=== PATIENT | female | born 1985 | race Caucasian/White ===

== ENCOUNTER 2016-08-13 12:02 | Emergency (ER) | payer MEDICAID ==
[2016-08-13 12:47] LABS: CHLORIDE,CL 105 mEq/L (98-106); SODIUM,NA 140 mEq/L (136-145)
[2016-08-13 12:52] VITALS: BP 128/72
--- NOTE | 2016-08-13 13:11 | EDM.PDOC ---
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 Never got out of truck and nobody reported her doing anything unusual. Currently feels dizzy and nauseated. She has had a posterior headache for several days before this but denies any trauma or head injury. No change in vision noted. Doesn't know if she has been having a fever or not. No past medical history to contribute to it. Onset: Today Location: Reports: Head Quality: Reports: Ache Associated Symptoms: Reports: Nausea/Vomiting. 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 Headache Pain Score (Numeric/FACES): 7 - Related Data Allergies Allergy/AdvReac Type Severity Reaction Status Date / Time Penicillins Allergy Hives Verified 08/13/16 12:15 BEE STINGS Allergy Other Uncoded 08/13/16 12:15 Home Meds: Home Meds Cyclobenzaprine [Flexeril] 10 mg PO TID PRN 08/13/16 [History] Past Medical History - Past Surgical History Female Surgical History: Reports: Tubal Ligation Social & Family History - Tobacco Use Smoking Status *Q: Current Every Day Smoker Years of Tobacco use: 13 Packs/Tins Daily: 1 ED ROS GENERAL - Review of Systems Review Of Systems: See Below Constitutional: Denies: Weakness HEENT: Reports: No Symptoms Respiratory: Reports: No Symptoms Cardiovascular: Reports: No Symptoms GI/Abdominal: Denies: Abdominal Pain : Denies: Dysuria, Flank Pain, Frequency, Hematuria, Pain, Urgency Musculoskeletal: Reports: No Symptoms Skin: Denies: Bruising, Rash, Wound Neurological: Reports: Confusion, Other (see HPI) ED EXAM, GENERAL - Physical Exam Exam: See Below Exam Limited By: No Limitations General Appearance: Alert, WD/WN, No Apparent Distress Ears: Normal External Exam, Normal Canal, Hearing Grossly Normal, Normal TMs Nose: Normal Inspection, Normal Mucosa Throat/Mouth: Normal Inspection, Normal Voice, Other (posterior pharynx is bright red with white patches noted bilaterally.) Head: Atraumatic, Normocephalic Neck: Normal Inspection, Supple, Non-Tender, Full Range of Motion Respiratory/Chest: No Respiratory Distress, Lungs Clear, Normal Breath Sounds, Chest Non-Tender Cardiovascular: Normal Peripheral Pulses, Regular Rate, Rhythm, No Edema GI/Abdominal: Normal Bowel Sounds, Soft, Non-Tender Extremities: Normal Inspection, Normal Range of Motion, Non-Tender, No Pedal Edema, Normal Capillary Refill Neurological: Alert, Oriented, CN II-XII Intact, Normal Cognition, Normal Gait, No Motor/Sensory Deficits Psychiatric: Normal Affect, Normal Mood Skin Exam: Warm, Dry, Intact, Normal Color Course - Vital Signs Last Recorded V/S: Last Vital Signs Temp 97.3 F 08/13/16 12:50 Pulse 56 L 08/13/16 12:50 Resp 16 08/13/16 12:50 BP 128/72 08/13/16 12:50 Pulse Ox 99 08/13/16 12:50 - Orders/Labs/Meds Orders: Active Orders 24 hr Category Date Time Status Head wo Cont [CT] Stat Exams 08/13/16 12:26 Taken CULTURE URINE [RM] Stat Lab 08/13/16 13:05 Uncollected STREP SCRN A RAPID W CULT CONF [RM] Stat Lab 08/13/16 13:00 Received Labs: Laboratory Tests 08/13/16 08/13/16 08/13/16 Range/Units 12:24 12:24 12:25 WBC 8.3 (5.0-10.0) 10^3/uL RBC 4.20 (4.00-5.50) 10^6/uL Hgb 13.2 (12.0-16.0) g/dL Hct 40.3 (37.0-47.0) % MCV 96.0 H (82.0-94.0) fL MCH 31.4 (27.0-32.0) pg MCHC 32.8 L (33.0-38.0) g/dL RDW Coeff of Bianca 12.1 (11.0-15.0) % Plt Count 232 (150-400) 10^3/uL Neut % (Auto) 70.9 (35-85) % Lymph % (Auto) 19.5 (10-55) % [place] % (Auto) 8.1 (0-16) % Eos % (Auto) 1.1 (0-5) % Baso % (Auto) 0.4 (0-3) % Neut # (Auto) 5.85 (1.80-7.00) 10^3/uL Lymph # (Auto) 1.61 (1.00-4.80) 10^3/uL [place] # (Auto) 0.67 (0.00-0.80) 10^3/uL Eos # (Auto) 0.09 (0.00-0.45) 10^3/uL Baso # (Auto) 0.03 10^3/uL Sodium 140 (136-145) mEq/L Potassium 4.0 (3.5-5.0) mEq/L Chloride 105 (98-106) mEq/L Carbon Dioxide 30 (21-32) mmol/L BUN 10 (7-18) mg/dL Creatinine 0.8 (0.6-1.0) mg/dL Est Cr Clr Drug Dosing 92.53 mL/min Estimated GFR (MDRD) > 60 (>=60) mL/min Glucose 90 (75-99) mg/dL Calcium 8.6 (8.4-10.1) mg/dL Total Bilirubin 0.6 (0.0-1.0) mg/dL AST 10 L (15-37) U/L ALT 16 (12-78) U/L Alkaline Phosphatase 54 (46-116) U/L Total Protein 6.3 L (6.4-8.2) g/dL Albumin 3.4 (3.4-5.0) g/dL Urine Color Yellow (YELLOW) Urine Appearance Cloudy (CLEAR) Urine pH 7.0 (4.5-8.0) Ur Specific [place] 1.016 (1.003-1.020) Urine Protein Negative (NEGATIVE) mg/dL Urine Glucose (UA) Negative (NEGATIVE) mg/dL Urine Ketones Negative (NEGATIVE) mg/dL Urine Occult Blood Negative (NEGATIVE) Urine Nitrite Positive H (NEGATIVE) Urine Bilirubin Negative (NEGATIVE) Urine Urobilinogen 0.2 (0.2-1.0) EU/dL Ur Leukocyte Esterase Trace H (NEGATIVE) Urine RBC Not seen (0-5) /HPF Urine WBC 0-5 (0-5) /HPF Ur Epithelial Cells Few H (NOT SEEN) /HPF Amorphous Sediment Few H (NOT SEEN) /HPF Urine Bacteria Many H (NOT SEEN) /HPF Departure - Departure Time of Disposition: 13:18 Disposition: Home, Self-Care 01 Condition: Good Clinical Impression: UTI, Urinary tract infectious disease - Discharge Information Forms: ED Department Discharge Additional Instructions: Push fluids as much as possible Tylenol or advil for headache or pain Cipro 500 mg twice a day for 10 days No work today and tomorrow If symptoms persist or do not completely resolve then recheck. - Problem List & Annotations (1) UTI, Urinary tract infectious disease SNOMED Code(s): 87883279 Code(s): N39.0 - URINARY TRACT INFECTION, SITE NOT SPECIFIED Status: Acute Priority: High - Problem List Review Problem List Initiated/Reviewed/Updated: Yes - My Orders Last 24 Hours: My Active Orders 08/13/16 12:26 Head wo Cont [CT] Stat 08/13/16 13:00 STREP SCRN A RAPID W CULT CONF [RM] Stat 08/13/16 13:05 CULTURE URINE [RM] Stat - Assessment/Plan Last 24 Hours: My Active Orders 08/13/16 12:26 Head wo Cont [CT] Stat 08/13/16 13:00 STREP SCRN A RAPID W CULT CONF [RM] Stat 08/13/16 13:05 CULTURE URINE [RM] Stat
== END 2016-08-13 13:30 | disposition home or self-care (01) ==
LOC: CC.ED 12:02
DX: N39.0 Urinary tract infection, site not specified (principal); F17.210 Nicotine dependence, cigarettes, uncomplicated; Z88.0 Allergy status to penicillin; Z91.030 Bee allergy status; Z98.51 Tubal ligation status
CPT/HCPCS: 36415; 70450; 80053; 81001; 85025; 87086; 87088; 87186; 87430; 99284

== ENCOUNTER 2017-07-20 19:40 | Emergency (ER) | payer MEDICAID, OTHER ==
[2017-07-20 20:02] VITALS: BP 133/80
[2017-07-20 20:11] LABS: CHLORIDE,CL 107 mEq/L (98-106); SODIUM,NA 143 mEq/L (136-145)
[2017-07-20] MEDS ORDERED: Ketorolac 60 MG/2 ML SDV IM ONE (20:26)
[2017-07-20] MEDS ORDERED: cefTRIAXone 1 GM Vial IM ONE (20:26)
--- NOTE | 2017-07-20 20:32 | EDM.PDOC ---
ED HPI GENERAL MEDICAL PROBLEM - General Chief Complaint: Abdominal Pain Stated Complaint: "Having lower abdominal pain" Time Seen by Provider: 07/20/17 19:55 Source of Information: Reports: Patient History Limitations: Reports: No Limitations - History of Present Illness INITIAL COMMENTS - FREE TEXT/NARRATIVE: Criselda is a 31 yo female who presents ambulatory to the ER with complaints of right lower quadrant/pelvic pain. She states she started her period on Wednesday. Admits it was her boyfriend's birthday on Wednesday and she had intercourse. She states they had both been drinking and is concerned that a tampon is still in her vagina. She states her bleeding had stopped on Wednesday and into Wednesday. Admits this is really odd for her. She states she started getting the abdominal pain yesterday and has progressively worsened since. She states she started having light bleeding today. She denies any chance of . States she had her tubes tied. Admits to history of ovarian cysts though. Location: Reports: Pelvis Quality: Reports: Pressure, Sharp - Related Data Allergies Allergy/AdvReac Type Severity Reaction Status Date / Time amoxicillin Allergy Rash Verified 07/20/17 20:28 Penicillins Allergy Hives Verified 07/20/17 19:46 BEE STINGS Allergy Other Uncoded 07/20/17 19:46 Home Meds: Home Meds Cyclobenzaprine [Flexeril] 10 mg PO TID PRN 08/13/16 [History] Past Medical History MEDICAL ENGINEER History: Reports: Polycystic Ovaries, : 3 Para: 3 LMP (Approximate): Menstruating - Past Surgical History Female Surgical History: Reports: Tubal Ligation Social & Family History - Tobacco Use Smoking Status *Q: Current Every Day Smoker Years of Tobacco use: 10 Packs/Tins Daily: 1 ED ROS GENERAL - Review of Systems Review Of Systems: ROS reveals no pertinent complaints other than HPI. Constitutional: Denies: Fever, Chills Respiratory: Reports: No Symptoms Cardiovascular: Reports: No Symptoms Endocrine: Reports: No Symptoms GI/Abdominal: Reports: Abdominal Pain, Nausea. Denies: Constipation, Diarrhea, Vomiting : Reports: Flank Pain, Hematuria. Denies: Dysuria, Incontinence, Irregular Menses Skin: Reports: No Symptoms Psychiatric: Reports: No Symptoms ED EXAM, GI/ABD - Physical Exam Exam: See Below General Appearance: Alert, No Apparent Distress Course - Vital Signs Last Recorded V/S: Last Vital Signs Temp 97.5 F 07/20/17 19:58 Pulse 80 07/20/17 19:58 Resp 20 07/20/17 19:58 BP 133/80 07/20/17 19:58 Pulse Ox 95 07/20/17 19:58 - Orders/Labs/Meds Orders: Active Orders 24 hr Category Date Time Status Ketorolac [Toradol] Med 07/20/17 20:26 Once 60 mg IM ONETIME ONE cefTRIAXone [Rocephin] Med 07/20/17 20:26 Once 1 gm IM ONETIME ONE Medication Orders Ceftriaxone Sodium (Rocephin) 1 gm IM ONETIME ONE Stop: 07/20/17 20:27 Ketorolac Tromethamine (Toradol) 60 mg IM ONETIME ONE Stop: 07/20/17 20:27 Labs: Laboratory Tests 07/20/17 07/20/17 07/20/17 Range/Units 19:57 19:57 19:57 WBC 5.7 (5.0-10.0) 10^3/uL RBC 4.20 (4.00-5.50) 10^6/uL Hgb 13.3 (12.0-16.0) g/dL Hct 39.6 (37.0-47.0) % MCV 94.3 H (82.0-94.0) fL MCH 31.7 (27.0-32.0) pg MCHC 33.6 (33.0-38.0) g/dL RDW Coeff of Bianca 12.4 (11.0-15.0) % Plt Count 277 (150-400) 10^3/uL Neut % (Auto) 37.7 (35-85) % Lymph % (Auto) 49.6 (10-55) % [place] % (Auto) 7.6 (0-16) % Eos % (Auto) 4.4 (0-5) % Baso % (Auto) 0.7 (0-3) % Neut # (Auto) 2.13 (1.80-7.00) 10^3/uL Lymph # (Auto) 2.81 (1.00-4.80) 10^3/uL [place] # (Auto) 0.43 (0.00-0.80) 10^3/uL Eos # (Auto) 0.25 (0.00-0.45) 10^3/uL Baso # (Auto) 0.04 10^3/uL Sodium 143 (136-145) mEq/L Potassium 3.7 (3.5-5.0) mEq/L Chloride 107 H (98-106) mEq/L Carbon Dioxide 23 (21-32) mmol/L BUN 11 (7-18) mg/dL Creatinine 0.9 (0.6-1.0) mg/dL Est Cr Clr Drug Dosing TNP Estimated GFR (MDRD) > 60 (>=60) mL/min Glucose 105 H (75-99) mg/dL Calcium 8.1 L (8.4-10.1) mg/dL Total Bilirubin 1.3 H (0.0-1.0) mg/dL AST 20 (15-37) U/L ALT 26 (12-78) U/L Alkaline Phosphatase 69 (46-116) U/L C-Reactive Protein < 0.2 L (0.2-0.8) mg/dL Total Protein 6.9 (6.4-8.2) g/dL Albumin 3.9 (3.4-5.0) g/dL HCG, Qual Urine Color Yellow (YELLOW) Urine Appearance Slightly cloudy (CLEAR) Urine pH 6.0 (4.5-8.0) Ur Specific [place] 1.015 (1.003-1.020) Urine Protein Negative (NEGATIVE) mg/dL Urine Glucose (UA) Negative (NEGATIVE) mg/dL Urine Ketones Negative (NEGATIVE) mg/dL Urine Occult Blood Moderate H (NEGATIVE) Urine Nitrite Positive H (NEGATIVE) Urine Bilirubin Negative (NEGATIVE) Urine Urobilinogen 1.0 (0.2-1.0) EU/dL Ur Leukocyte Esterase Trace H (NEGATIVE) Urine RBC 5-10 H (0-5) /HPF Urine WBC 5-10 H (0-5) /HPF Ur Epithelial Cells Few H (NOT SEEN) /HPF Urine Bacteria Many H (NOT SEEN) /HPF Urine Mucus Few H (NOT SEEN) /HPF 07/20/17 Range/Units 19:57 WBC (5.0-10.0) 10^3/uL RBC (4.00-5.50) 10^6/uL Hgb (12.0-16.0) g/dL Hct (37.0-47.0) % MCV (82.0-94.0) fL MCH (27.0-32.0) pg MCHC (33.0-38.0) g/dL RDW Coeff of Bianca (11.0-15.0) % Plt Count (150-400) 10^3/uL Neut % (Auto) (35-85) % Lymph % (Auto) (10-55) % [place] % (Auto) (0-16) % Eos % (Auto) (0-5) % Baso % (Auto) (0-3) % Neut # (Auto) (1.80-7.00) 10^3/uL Lymph # (Auto) (1.00-4.80) 10^3/uL [place] # (Auto) (0.00-0.80) 10^3/uL Eos # (Auto) (0.00-0.45) 10^3/uL Baso # (Auto) 10^3/uL Sodium (136-145) mEq/L Potassium (3.5-5.0) mEq/L Chloride (98-106) mEq/L Carbon Dioxide (21-32) mmol/L BUN (7-18) mg/dL Creatinine (0.6-1.0) mg/dL Est Cr Clr Drug Dosing Estimated GFR (MDRD) (>=60) mL/min Glucose (75-99) mg/dL Calcium (8.4-10.1) mg/dL Total Bilirubin (0.0-1.0) mg/dL AST (15-37) U/L ALT (12-78) U/L Alkaline Phosphatase (46-116) U/L C-Reactive Protein (0.2-0.8) mg/dL Total Protein (6.4-8.2) g/dL Albumin (3.4-5.0) g/dL HCG, Qual Negative Urine Color (YELLOW) Urine Appearance (CLEAR) Urine pH (4.5-8.0) Ur Specific [place] (1.003-1.020) Urine Protein (NEGATIVE) mg/dL Urine Glucose (UA) (NEGATIVE) mg/dL Urine Ketones (NEGATIVE) mg/dL Urine Occult Blood (NEGATIVE) Urine Nitrite (NEGATIVE) Urine Bilirubin (NEGATIVE) Urine Urobilinogen (0.2-1.0) EU/dL Ur Leukocyte Esterase (NEGATIVE) Urine RBC (0-5) /HPF Urine WBC (0-5) /HPF Ur Epithelial Cells (NOT SEEN) /HPF Urine Bacteria (NOT SEEN) /HPF Urine Mucus (NOT SEEN) /HPF Meds: Medications Generic Name Dose Route Start Last Admin Trade Name Freq PRN Reason Stop Dose Admin Ceftriaxone Sodium 1 gm 07/20/17 20:26 Rocephin IM 07/20/17 20:27 ONETIME ONE Ketorolac Tromethamine 60 mg 07/20/17 20:26 Toradol IM 07/20/17 20:27 ONETIME ONE - Re-Assessments/Exams Free Text/Narrative Re-Assessment/Exam: Speculum exam performed with full intact tampon found in the right upper area of the vaginal vault. String and tampon completely intact and removed using long forceps. No further residual tampon products noted. Genital culture done. Departure - Departure Time of Disposition: 20:36 Disposition: Home, Self-Care Clinical Impression: PID (acute pelvic inflammatory disease) UTI (urinary tract infection) Qualifiers: Urinary tract infection type: site unspecified Hematuria presence: with hematuria Qualified Code(s): N39.0 - Urinary tract infection, site not specified ; R31.9 - Hematuria, unspecified - Discharge Information Instructions: Pelvic Inflammatory Disease, [id number], Urinary Tract Infection, Adult Additional Instructions: 1) Doxycycline 100mg twice a day for 10 days 2) Push fluids 3) Pelvic rest until infection is cleared 4) 1000mg of Tylenol with 400mg of Ibuprofen every 6-8 hours as needed for discomfort. 5) Follow up with primary after finishing antibiotic for confirmed clearance of infection 6) Return to ER if any concerns. - Problem List & Annotations (1) PID (acute pelvic inflammatory disease) SNOMED Code(s): 361194718 Code(s): N73.0 - ACUTE PARAMETRITIS AND PELVIC CELLULITIS Status: Acute (2) UTI (urinary tract infection) SNOMED Code(s): 21370974 Code(s): N39.0 - URINARY TRACT INFECTION, SITE NOT SPECIFIED Status: Acute Qualifiers: Urinary tract infection type: site unspecified Hematuria presence: with hematuria Qualified Code(s): N39.0 - Urinary tract infection, site not specified; R31.9 - Hematuria, unspecified - My Orders Last 24 Hours: My Active Orders 07/20/17 20:26 Ketorolac [Toradol] 60 mg IM ONETIME ONE cefTRIAXone [Rocephin] 1 gm IM ONETIME ONE - Assessment/Plan Last 24 Hours: My Active Orders 07/20/17 20:26 Ketorolac [Toradol] 60 mg IM ONETIME ONE cefTRIAXone [Rocephin] 1 gm IM ONETIME ONE
== END 2017-07-20 20:48 | disposition home or self-care (01) ==
LOC: CC.ED 19:40
DX: N39.0 Urinary tract infection, site not specified (principal); N73.9 Female pelvic inflammatory disease, unspecified; Z88.1 Allergy status to other antibiotic agents; Z88.0 Allergy status to penicillin; F17.210 Nicotine dependence, cigarettes, uncomplicated; Z91.030 Bee allergy status
CPT/HCPCS: 36415; 80053; 81001; 84703; 85025; 86140; 87070; 87086; 96372; 99284; J0696; J1885; 87077; 87088; 87186